=== PATIENT | female | born 1965 | race Caucasian/White ===

== ENCOUNTER 2018-02-07 18:27 | Inpatient (IN) | payer BC, OTHER ==
[2018-02-07] MEDS: CEFEPIME 2GM/50 ML (PMX) 50 ML IVPB (19:00)
[2018-02-07] MEDS: METHYLPREDNISOLONE 125 MG INJ IV (19:00)
[2018-02-07 19:04] LABS: ADD MAN DIFF? NO
[2018-02-07 19:07] LABS: BASOPHILS % 0.4 % (0.0-2.0); EOSINOPHILS # 0.3 10^3/ul (0.0-0.5); EOSINOPHILS % 2.8 % (0.0-7.0); HEMATOCRIT 38.1 % (37.0-47.0); HEMOGLOBIN 11.7 g/dl (12.0-16.0); LYMPHOCYTES # 1.2 10^3/ul (0.8-2.9); LYMPHOCYTES % 12.8 % (15.0-51.0); MEAN CORPUSCULAR HEMOGLOBIN 30.6 pg (29.0-33.0); MEAN CORPUSCULAR HGB CONC 30.7 g/dl (32.0-37.0); MEAN CORPUSCULAR VOLUME 99.7 fl (82.0-101.0); MEAN PLATELET VOLUME 10.6 fl (7.4-10.4); MONOCYTE # 0.6 10^3/ul (0.3-0.9); MONOCYTES % 6.9 % (0.0-11.0); NEUTROPHILS % 76.5 % (39.0-77.0); PLATELET COUNT 175 10^3/UL (140-415); RED BLOOD COUNT 3.82 10^6/ul (4.20-5.40); RED CELL DISTRIBUTION WIDTH 18.3 % (11.5-14.5)
[2018-02-07 19:07] LABS: WHITE BLOOD COUNT 9.1 10^3/ul (4.8-10.8)
[2018-02-07] MEDS: ALBUTEROL 0.5% (NEB) 2.5 MG/0.5 ML AMP INH (19:07)
[2018-02-07] MEDS: IPRATROPIUM (NEB) 0.5 MG/2.5 ML AMP INH (19:07)
[2018-02-07 19:24] LABS: ALANINE AMINOTRANSFERASE 30 IU/L (13-69); ALBUMIN 3.1 g/dl (3.3-4.9); ALBUMIN/GLOBULIN RATIO 1.03; ALKALINE PHOSPHATASE 152 IU/L (42-121); ANION GAP 15 (8-16); ASPARTATE AMINO TRANSFERASE 23 IU/L (15-46); BILIRUBIN,INDIRECT 0.4 mg/dl (0-1.1); BILIRUBIN,TOTAL 0.4 mg/dl (0.2-1.3); BLOOD UREA NITROGEN 31 mg/dl (7-20); CALCIUM 7.9 mg/dl (8.4-10.2); CARBON DIOXIDE 30 mmol/L (21-31); CHLORIDE 96 mmol/L (97-110); CREATININE 2.81 mg/dl (0.44-1.00); GLUCOSE 85 mg/dl (70-220); POTASSIUM 4.4 mmol/L (3.5-5.1); SODIUM 137 mmol/L (135-144); TOTAL PROTEIN 6.1 g/dl (6.1-8.1)
[2018-02-07 19:26] LABS: INR 1.21; PROTIME 15.5 Sec (11.9-14.9); PT RATIO 1.2
[2018-02-07 19:27] LABS: PARTIAL THROMBOPLASTIN TIME 39.2 Sec (25.0-35.0)
[2018-02-07 19:28] LABS: LACTIC ACID 2.5 mmol/L (0.5-2.0)
[2018-02-07 19:36] LABS: TROPONIN-I 0.101 ng/ml (0.000-0.120)
[2018-02-07] MEDS: VANCOMYCIN 1 GM (PMX) 250 ML IVPB (19:51)
[2018-02-07] MEDS: SOD CHLORIDE 0.9% 500 ML IV (20:53)
[2018-02-07] MEDS ORDERED: ACETAMINOPHEN 325 MG TAB PO (21:00)
[2018-02-07] MEDS ORDERED: ONDANSETRON 4 MG INJ IV (21:00)
[2018-02-07] MEDS: SOD CHLORIDE 0.9% 1,000 ML IV ×2 (21:58→23:10)
[2018-02-07 23:14] LABS: LACTIC ACID 1.6 mmol/L (0.5-2.0)
[2018-02-08] MEDS ORDERED: ACETAMINOPHEN 650MG/20.3ML CUP PO
[2018-02-08] MEDS ORDERED: ONDANSETRON 4 MG INJ IV
[2018-02-08 01:47] LABS: LACTIC ACID 1.5 mmol/L (0.5-2.0)
[2018-02-08] MEDS: NORepinephrine 8MG/250 ML (PMX 250 ML IV (03:06)
[2018-02-08] MEDS ORDERED: DEXTROSE 50% 50 ML SYRINGE IV ×4 (06:30→14:30)
[2018-02-08] MEDS ORDERED: GLUCOSE GEL 15 GRAM TUBE BUCCAL (06:30)
[2018-02-08] MEDS ORDERED: GLUCOSE GEL 15 GRAM TUBE PO ×2 (06:30)
[2018-02-08] MEDS ORDERED: GLUCAGON 1 MG INJ IM (06:30)
[2018-02-08 07:13] LABS: ADD MAN DIFF? NO
[2018-02-08 07:18] LABS: WHITE BLOOD COUNT 10.6 10^3/ul (4.8-10.8)
[2018-02-08 07:18] LABS: ABNORMAL IP MESSAGE 1; BASOPHILS % 0.1 % (0.0-2.0); HEMATOCRIT 39.9 % (37.0-47.0); LYMPHOCYTES # 0.3 10^3/ul (0.8-2.9); LYMPHOCYTES % 2.6 % (15.0-51.0); MEAN CORPUSCULAR HEMOGLOBIN 29.6 pg (29.0-33.0); MEAN CORPUSCULAR HGB CONC 30.1 g/dl (32.0-37.0); MEAN CORPUSCULAR VOLUME 98.5 fl (82.0-101.0); MEAN PLATELET VOLUME 11.3 fl (7.4-10.4); MONOCYTE # 0.1 10^3/ul (0.3-0.9); MONOCYTES % 1.1 % (0.0-11.0); NEUTROPHIL # 10.2 10^3/ul (1.6-7.5); NEUTROPHILS % 95.6 % (39.0-77.0); NUCLEATED RED BLOOD CELLS% 0.2 /100WBC (0.0-0.0); PLATELET COUNT 152 10^3/UL (140-415); RED BLOOD COUNT 4.05 10^6/ul (4.20-5.40); RED CELL DISTRIBUTION WIDTH 17.9 % (11.5-14.5)
[2018-02-08 07:26] LABS: POSITIVE DIFF @See below
[2018-02-08 07:43] LABS: ALANINE AMINOTRANSFERASE 30 IU/L (13-69); ALBUMIN 2.7 g/dl (3.3-4.9); ALBUMIN/GLOBULIN RATIO 1.03; ALKALINE PHOSPHATASE 146 IU/L (42-121); ANION GAP 16 (8-16); ASPARTATE AMINO TRANSFERASE 16 IU/L (15-46); BILIRUBIN,INDIRECT 0.3 mg/dl (0-1.1); BILIRUBIN,TOTAL 0.3 mg/dl (0.2-1.3); BLOOD UREA NITROGEN 33 mg/dl (7-20); CALCIUM 6.9 mg/dl (8.4-10.2); CARBON DIOXIDE 24 mmol/L (21-31); CHLORIDE 101 mmol/L (97-110); CREATININE 3.04 mg/dl (0.44-1.00); GLUCOSE 376 mg/dl (70-220); POTASSIUM 4.6 mmol/L (3.5-5.1); SODIUM 136 mmol/L (135-144); TOTAL PROTEIN 5.3 g/dl (6.1-8.1)
[2018-02-08 07:50] LABS: AMMONIA < 9 umol/l (9-30); TROPONIN-I 0.074 ng/ml (0.000-0.120)
[2018-02-08] MEDS: INSULIN ASPART [NOVOLOG] 3 ML PEN SC (08:56)
[2018-02-08] MEDS: PREGABALIN 100 MG CAP PO ×2 (09:12→21:47)
[2018-02-08] MEDS: GABAPENTIN 300 MG CAP PO ×3 (09:12→21:47)
[2018-02-08] MEDS: INSULIN GLARGINE [LANtus] 3 ML PEN SC (09:53)
[2018-02-08 13:57] LABS: ALANINE AMINOTRANSFERASE 29 IU/L (13-69); ALBUMIN 2.7 g/dl (3.3-4.9); ALKALINE PHOSPHATASE 135 IU/L (42-121); ANION GAP 14 (8-16); ASPARTATE AMINO TRANSFERASE 13 IU/L (15-46); BILIRUBIN,INDIRECT 0.2 mg/dl (0-1.1); BILIRUBIN,TOTAL 0.2 mg/dl (0.2-1.3); BLOOD UREA NITROGEN 37 mg/dl (7-20); CALCIUM 6.9 mg/dl (8.4-10.2); CARBON DIOXIDE 24 mmol/L (21-31); CHLORIDE 100 mmol/L (97-110); CREATININE 3.24 mg/dl (0.44-1.00); POTASSIUM 4.4 mmol/L (3.5-5.1); SODIUM 134 mmol/L (135-144); TOTAL PROTEIN 5.4 g/dl (6.1-8.1)
[2018-02-08 14:02] LABS: GLUCOSE 530 mg/dl (70-220)
[2018-02-08] MEDS: ACCU-CHEK XX ×10 (14:39→23:45)
[2018-02-08] MEDS: INSULIN HUMAN REGULAR 100 UNIT in SOD CHLORIDE 0.9% 99 ML IV ×2 (14:39→21:54)
[2018-02-08] MEDS ORDERED: INSULIN GLARGINE [LANtus] 3 ML PEN SC (21:00)
[2018-02-09] MEDS: ACCU-CHEK XX ×2 (00:38→02:48)
[2018-02-09] MEDS ORDERED: ACCU-CHEK XX (02:00)
[2018-02-09] MEDS: DEXTROSE 50% 50 ML SYRINGE IV ×2 (02:23→02:49)
[2018-02-09] MEDS ORDERED: GLUCOSE GEL 15 GRAM TUBE BUCCAL (02:30)
[2018-02-09] MEDS ORDERED: GLUCOSE GEL 15 GRAM TUBE PO ×2 (02:30)
[2018-02-09] MEDS ORDERED: DEXTROSE 50% 50 ML SYRINGE IV (02:30)
[2018-02-09] MEDS ORDERED: GLUCAGON 1 MG INJ IM (02:30)
[2018-02-09 05:27] LABS: ADD MAN DIFF? NO
[2018-02-09 05:32] LABS: BASOPHILS % 0.2 % (0.0-2.0); EOSINOPHILS # 0.2 10^3/ul (0.0-0.5); EOSINOPHILS % 1.3 % (0.0-7.0); HEMATOCRIT 36.4 % (37.0-47.0); HEMOGLOBIN 10.8 g/dl (12.0-16.0); LYMPHOCYTES # 0.9 10^3/ul (0.8-2.9); LYMPHOCYTES % 8.4 % (15.0-51.0); MEAN CORPUSCULAR HEMOGLOBIN 29.6 pg (29.0-33.0); MEAN CORPUSCULAR HGB CONC 29.7 g/dl (32.0-37.0); MEAN CORPUSCULAR VOLUME 99.7 fl (82.0-101.0); MEAN PLATELET VOLUME 10.6 fl (7.4-10.4); MONOCYTE # 0.8 10^3/ul (0.3-0.9); MONOCYTES % 7.2 % (0.0-11.0); NEUTROPHIL # 9.3 10^3/ul (1.6-7.5); NEUTROPHILS % 82.5 % (39.0-77.0); PLATELET COUNT 130 10^3/UL (140-415); RED BLOOD COUNT 3.65 10^6/ul (4.20-5.40); RED CELL DISTRIBUTION WIDTH 18.5 % (11.5-14.5)
[2018-02-09 05:32] LABS: WHITE BLOOD COUNT 11.3 10^3/ul (4.8-10.8)
[2018-02-09 05:59] LABS: ANION GAP 15 (8-16); BLOOD UREA NITROGEN 41 mg/dl (7-20); CALCIUM 6.8 mg/dl (8.4-10.2); CARBON DIOXIDE 25 mmol/L (21-31); CHLORIDE 100 mmol/L (97-110); CREATININE 3.32 mg/dl (0.44-1.00); GLUCOSE 96 mg/dl (70-220); POTASSIUM 3.9 mmol/L (3.5-5.1); SODIUM 136 mmol/L (135-144)
[2018-02-09] MEDS: INSULIN ASPART [NOVOLOG] 3 ML PEN SC ×4 (08:51→21:41)
[2018-02-09] MEDS: INSULIN GLARGINE [LANtus] 3 ML PEN SC (08:52)
[2018-02-09] MEDS: PREGABALIN 100 MG CAP PO ×2 (08:54→21:15)
[2018-02-09] MEDS: GABAPENTIN 300 MG CAP PO ×3 (08:54→21:15)
[2018-02-09 10:15] LABS: HEPATITIS B SURFACE ANTIGEN NEGATIVE (NEGATIVE)
[2018-02-09] MEDS: HEPARIN 1000 UNITS/ML 10 ML INJ CATHETER (11:02)
[2018-02-09] MEDS ORDERED: LORAZEPAM 2 MG INJ IV (11:30)
[2018-02-09] MEDS: ALBUTEROL/IPRATROPIUM (NEB) 3 ML AMP NEB (11:37)
[2018-02-09] MEDS: LORAZEPAM 1 MG TAB PO (11:54)
[2018-02-09] MEDS: ALBUMIN HUMAN 25% 100 ML IV (13:00)
[2018-02-09] MEDS: LIDOCAINE 1% (MDV) 10 ML INJ (16:21)
[2018-02-10] MEDS: ACCU-CHEK XX (02:00)
[2018-02-10 05:02] LABS: ADD MAN DIFF? NO
[2018-02-10 05:25] LABS: WHITE BLOOD COUNT 11.7 10^3/ul (4.8-10.8)
[2018-02-10 05:25] LABS: BASOPHILS % 0.3 % (0.0-2.0); EOSINOPHILS # 0.2 10^3/ul (0.0-0.5); EOSINOPHILS % 1.4 % (0.0-7.0); HEMATOCRIT 36.9 % (37.0-47.0); HEMOGLOBIN 11.2 g/dl (12.0-16.0); LYMPHOCYTES % 8.4 % (15.0-51.0); MEAN CORPUSCULAR HEMOGLOBIN 30.4 pg (29.0-33.0); MEAN CORPUSCULAR HGB CONC 30.4 g/dl (32.0-37.0); MEAN PLATELET VOLUME 10.6 fl (7.4-10.4); MONOCYTE # 0.9 10^3/ul (0.3-0.9); MONOCYTES % 7.2 % (0.0-11.0); NEUTROPHIL # 9.6 10^3/ul (1.6-7.5); NEUTROPHILS % 82.1 % (39.0-77.0); PLATELET COUNT 114 10^3/UL (140-415); RED BLOOD COUNT 3.69 10^6/ul (4.20-5.40); RED CELL DISTRIBUTION WIDTH 18.8 % (11.5-14.5)
[2018-02-10 05:50] LABS: ALANINE AMINOTRANSFERASE 31 IU/L (13-69); ALBUMIN 2.3 g/dl (3.3-4.9); ALBUMIN/GLOBULIN RATIO 0.92; ALKALINE PHOSPHATASE 132 IU/L (42-121); ANION GAP 10 (8-16); ASPARTATE AMINO TRANSFERASE 16 IU/L (15-46); BILIRUBIN,INDIRECT 0.2 mg/dl (0-1.1); BILIRUBIN,TOTAL 0.2 mg/dl (0.2-1.3); BLOOD UREA NITROGEN 36 mg/dl (7-20); CALCIUM 6.7 mg/dl (8.4-10.2); CARBON DIOXIDE 25 mmol/L (21-31); CHLORIDE 103 mmol/L (97-110); CREATININE 2.87 mg/dl (0.44-1.00); GLUCOSE 208 mg/dl (70-220); POTASSIUM 3.7 mmol/L (3.5-5.1); SODIUM 134 mmol/L (135-144); TOTAL PROTEIN 4.8 g/dl (6.1-8.1)
[2018-02-10] MEDS: GABAPENTIN 300 MG CAP PO ×2 (09:09→12:40)
[2018-02-10] MEDS: INSULIN GLARGINE [LANtus] 3 ML PEN SC (09:15)
[2018-02-10] MEDS: INSULIN ASPART [NOVOLOG] 3 ML PEN SC ×3 (09:59→18:25)
[2018-02-10] MEDS: PREGABALIN 50 MG CAP PO (12:39)
[2018-02-10] MEDS ORDERED: HEPARIN 1000 UNITS/ML 10 ML INJ CATHETER (17:30)
[2018-02-11] MEDS ORDERED: ACCU-CHEK XX (02:00)
== END 2018-02-10 19:34 | disposition home or self-care (01) | DRG 871 ==
LOC: TEL 02-10 08:02 → ICU 21:01 → E/R 18:27 → MS4 21:00
PROC: 5A1D70Z Performance of Urinary Filtration, Intermittent, Less than 6 Hours Per Day (ICD-10-PCS; 2018-02-08)
PROC: 0W993ZZ Drainage of Right Pleural Cavity, Percutaneous Approach (ICD-10-PCS; principal; 2018-02-09)
PROC: 5A1D70Z Performance of Urinary Filtration, Intermittent, Less than 6 Hours Per Day (ICD-10-PCS; 2018-02-09)
DX: A41.9 Sepsis, unspecified organism (principal); R65.21 Severe sepsis with septic shock; N18.6 End stage renal disease; G93.40 Encephalopathy, unspecified; J96.01 Acute respiratory failure with hypoxia; I12.0 Hypertensive chronic kidney disease with stage 5 chronic kidney disease or end stage renal disease; J90 Pleural effusion, not elsewhere classified; E11.22 Type 2 diabetes mellitus with diabetic chronic kidney disease; E11.65 Type 2 diabetes mellitus with hyperglycemia; Z99.2 Dependence on renal dialysis; K70.30 Alcoholic cirrhosis of liver without ascites; E78.5 Hyperlipidemia, unspecified; Z79.4 Long term (current) use of insulin; F17.210 Nicotine dependence, cigarettes, uncomplicated; E87.70 Fluid overload, unspecified
CPT/HCPCS: 36415; 70450; 71045; 76942; 80048; 80053; 82140; 82962; 83036; 83605; 84484; 85025; 85610; 85730; 87040; 87081; 87340; 90935; 93005; 94644; 94664; 96374; 96375; 99291-25

== ENCOUNTER 2019-02-19 13:15 | Day surgery (SDC) | payer OTHER ==
[2019-02-19] MEDS ORDERED: PROPOFOL 60 ML (16:28)
[2019-02-19] MEDS ORDERED: LIDOCAINE 2% (SDV) 5 ML INJ (16:28)
[2019-02-19] MEDS ORDERED: LABETALOL HCL 20MG INJ IV (17:30)
[2019-02-19] MEDS ORDERED: DIPHENHYDRAMINE 50 MG INJ IV (17:30)
[2019-02-19] MEDS ORDERED: EPHEDrine 25 MG/5 ML SYG IV (17:30)
[2019-02-19] MEDS ORDERED: ALBUTEROL 0.083% (NEB) 2.5 MG/3 ML AMP HHN (17:30)
[2019-02-19] MEDS ORDERED: FENTAnyl 50 MCG/ML VIAL IV ×2 (17:30)
[2019-02-19] MEDS ORDERED: METOCLOPRAMIDE 10 MG INJ IV (17:30)
[2019-02-19] MEDS ORDERED: ONDANSETRON 4 MG INJ IV (17:30)
[2019-02-19] MEDS ORDERED: hydrALAzine 20 MG INJ IV (17:30)
[2019-02-19] MEDS ORDERED: OXYCODONE/ACETAMINOPHEN (5/325) TAB PO (17:30)
[2019-02-19] MEDS ORDERED: MEPERIDINE 25 MG INJ IV (17:30)
[2019-02-19] MEDS ORDERED: MIDAZOLAM 1 MG/ML 2 ML INJ IV (17:30)
== END 2019-02-19 18:25 ==
LOC: GIL 13:15
DX: K64.9 Unspecified hemorrhoids (principal); K29.70 Gastritis, unspecified, without bleeding; I12.0 Hypertensive chronic kidney disease with stage 5 chronic kidney disease or end stage renal disease; N18.6 End stage renal disease; Z99.2 Dependence on renal dialysis; E11.9 Type 2 diabetes mellitus without complications
CPT/HCPCS: 43239; 88305

== ENCOUNTER 2019-05-01 17:33 | Emergency (ER) | payer BC, OTHER ==
[2019-05-01] MEDS: OXYCODONE/ACETAMINOPHEN (5/325) TAB PO (18:05)
== END 2019-05-01 18:11 | disposition home or self-care (01) ==
LOC: E/R 18:11
DX: I12.0 Hypertensive chronic kidney disease with stage 5 chronic kidney disease or end stage renal disease (principal); E11.22 Type 2 diabetes mellitus with diabetic chronic kidney disease; N18.6 End stage renal disease; Z79.4 Long term (current) use of insulin; Z99.2 Dependence on renal dialysis
CPT/HCPCS: 99283